=== PATIENT | male | born 1970 | race Caucasian/White ===

== ENCOUNTER 2018-12-11 16:15 | Emergency (ER) | payer MEDICAID ==
[2018-12-11] MEDS ORDERED: Multivitamin Inj 10 ML, Thiamine HCL 100 MG, Magnesium Sulfate 2 GM, Folic Acid 1 MG in... IV ONE (16:41)
--- NOTE | 2018-12-11 16:47 | ED Physician Chart ---
ED Chief Complaint/HPI - Patient Information Date Seen:: 12/11/18 Time Seen:: 16:35 Chief Complaint:: cheek pain History of Present Illness:: Patient was found sitting on the sidewalk. He states he fell 2 days ago hurting his right cheek. He also complained of diffuse myalgias. Accu-Chek in the field was 173. He denies drinking any alcohol today. Allergies:: Allergies Allergy/AdvReac Type Severity Reaction Status Date / Time No Known Allergies Allergy Verified 12/11/18 16:40 Historian:: Patient, EMS ED Review of Systems - Review of Systems General/Constitutional: No fever, No chills Skin: No skin lesions Head: No headache, Other (right cheek pain) Eyes: No loss of vision ENT: No earache Neck: No neck pain Cardio Vascular: No chest pain, No palpitations Pulmonary: No SOB GI: No nausea, No vomiting, No diarrhea G/U: No dysuria Musculoskeletal: No bone or joint pain Endocrine: No polyuria Psychiatric: No prior psych history, No depression, No anxiety Hematopoietic: No bruising Allergic/Immuno: No urticaria Neurological: No syncope, No focal symptoms ED Past Medical History - Past Medical History Past Medical History: No significant medical hx Family History: None Social History: Non Smoker Psychiatricy History: None Family Medical History - Family Member Mother History Unknown: Yes ED Physical Exam - Physical Examination General/Constitutional: Awake, Well-developed, well-nourished, Alert, No distress Other Gen/Cons comments:: disheveled Other Head comments:: tenderness right zygomatic arch without swelling Eyes: Lids, conjuctiva normal, PERRL Skin: Nl inspection ENMT: External ears, nose nl Other ENMT comments:: 3/4 periodontal disease Neck: No nuchal rigidity Respiratory: Nl effort/Exclusion, Clear to Auscultation, No Wheeze/Rhonchi/Rales Cardio Vascular: RRR, No murmur, gallop, rubs, NL S1 S2 GI: No tenderness/rebounding/guarding Extremities: Normal digits & nails Neuro/Psych: No focal deficits ED Labs/Radiology/EKG Results - Lab Results Results: Laboratory Results WBC 5.0 Th/cmm (4.8-10.8) 12/11/18 16:55 RBC 4.08 Mil/cmm (4.30-5.70) L 12/11/18 16:55 Hgb 11.7 gm/dL (12-16) L 12/11/18 16:55 Hct 34.8 % (41.0-60) L 12/11/18 16:55 MCV 85.3 fl (80-99) 12/11/18 16:55 MCH 28.7 pg (26.0-30.0) 12/11/18 16:55 MCHC Differential 33.7 pg (28.0-36.0) 12/11/18 16:55 RDW 17.0 % (11.5-20.0) 12/11/18 16:55 Plt Count 78 Th/cmm (150-400) L 12/11/18 16:55 MPV 7.2 fl 12/11/18 16:55 Neutrophils % 50.1 % (40.0-80.0) 12/11/18 16:55 Lymphocytes % 40.1 % (20.0-50.0) 12/11/18 16:55 Monocytes % 6.5 % (2.0-10.0) 12/11/18 16:55 Eosinophils % 2.0 % (0.0-5.0) 12/11/18 16:55 Basophils % 1.3 % (0.0-2.0) 12/11/18 16:55 Sodium 138 mEq/L (136-145) 12/11/18 16:55 Potassium 3.2 mEq/L (3.5-5.1) L 12/11/18 16:55 Chloride 99 mEq/L (98-107) 12/11/18 16:55 Carbon Dioxide 21.5 mEq/L (21.0-31.0) 12/11/18 16:55 Anion Gap 20.7 (7.0-16.0) H 12/11/18 16:55 BUN 9 mg/dL (7-25) 12/11/18 16:55 Creatinine 0.6 mg/dL (0.7-1.3) L 12/11/18 16:55 Est GFR ( Amer) > 60.0 ml/min (>90) 12/11/18 16:55 Est GFR (Non-Af Amer) > 60.0 ml/min 12/11/18 16:55 BUN/Creatinine Ratio 15.0 12/11/18 16:55 Glucose 107 mg/dL (70-105) H 12/11/18 16:55 Calcium 8.2 mg/dL (8.6-10.3) L 12/11/18 16:55 Magnesium 1.9 mg/dL (1.9-2.7) 12/11/18 16:55 Ethyl Alcohol 507 mg/dL (0-10) H 12/11/18 16:55 ED Assessment - Assessment General Assessment: Patient to stay in the emergency department until tomorrow morning because he blood alcohol level is so high (507) and patient be discharged when he ambulates normally. Patient's speech is not slurred, ED Septic Shock - . Is Septic Shock (SBP<90, OR Lactate>4 mmol\L) present?: No ED Reassessment (Disposition) - Reassessment Reassessment Condition:: Improved - Diagnosis Diagnosis:: Acute alcohol intoxication; probable chronic alcohol abuse; anemia; contusion right cheek - Patient Disposition Discharge/Transfer:: Home Condition at Disposition:: Stable, Improved
[2018-12-11 17:02] LABS: % BASOPHILS 1.3 % (0.0-2.0); % LYMPHOCYTES 40.1 % (20.0-50.0); % MONOCYTES 6.5 % (2.0-10.0); % NEUTROPHILS 50.1 % (40.0-80.0); BASOPHILE ABSOLUTE 0.1 Th/cumm (0-0.2); EOSINOPHILE ABSOLUTE 0.1 Th/cmm (0.1-0.4); HEMATOCRIT 34.8 % (41.0-60); HEMOGLOBIN 11.7 gm/dL (12-16); MEAN CELL VOLUME 85.3 fl (80-99); MEAN CORPUSCULAR HEMOGLOBIN 28.7 pg (26.0-30.0); MEAN CORPUSCULAR HGB CONC 33.7 pg (28.0-36.0); MEAN PLATELET VOLUME 7.2 fl; MONOCYTE ABSOLUTE 0.3 Th/cmm (0.3-1.0); NEUTROPHILE ABSOLUTE 2.5 Th/cmm (1.8-8.0); PLATELET COUNT 78 Th/cmm (150-400); RED BLOOD COUNT 4.08 Mil/cmm (4.30-5.70)
[2018-12-11 17:21] LABS: ANION GAP 20.7 (7.0-16.0); BUN - UREA NITROGEN 9 mg/dL (7-25); CALCIUM SERUM 8.2 mg/dL (8.6-10.3); CARBON DIOXIDE 21.5 mEq/L (21.0-31.0); CHLORIDE 99 mEq/L (98-107); CREATININE - SERUM 0.6 mg/dL (0.7-1.3); GFR AFRICAN-AMERICAN > 60.0 ml/min (>90); GFR NON AFRICAN-AMERICAN > 60.0 ml/min; GLUCOSE 107 mg/dL (70-105); MAGNESIUM 1.9 mg/dL (1.9-2.7); POTASSIUM SERUM 3.2 mEq/L (3.5-5.1); SODIUM SERUM 138 mEq/L (136-145)
[2018-12-11] MEDS ORDERED: Multivitamin Inj 10 mL Vial IV ONE (17:23)
[2018-12-11] MEDS ORDERED: Thiamine 100 mg/mL 2mL Vial ONE (17:24)
[2018-12-11] MEDS ORDERED: Magnesium Sulfate 1 gm/2 mL 2mL Vial IV ONE (17:29)
[2018-12-12] MEDS ORDERED: Potassium Chloride 20 mEq ER Tab PO ONE ×3 (00:29→04:32)
== END 2018-12-12 06:30 | disposition home or self-care (01) ==
LOC: ER 16:15
DX: S00.83XA Contusion of other part of head, initial encounter (principal); F10.129 Alcohol abuse with intoxication, unspecified; D64.9 Anemia, unspecified; Y90.8 Blood alcohol level of 240 mg/100 ml or more; W18.39XA Other fall on same level, initial encounter; Y93.89 Activity, other specified; Y92.89 Other specified places as the place of occurrence of the external cause; Y99.8 Other external cause status
CPT/HCPCS: 99283; 96365; 36415; 85025; 80320; 83735; 80048; J3411; J3475; J7030; X6226; X6598; Z7502

== ENCOUNTER 2018-12-27 19:54 | Emergency (ER) | payer MEDICAID ==
[2018-12-27 20:33] LABS: HEMATOCRIT 34.6 % (41.0-60); HEMOGLOBIN 11.9 gm/dL (12-16)
[2018-12-27 20:38] LABS: MEAN CELL VOLUME 85.3 fl (80-99); MEAN CORPUSCULAR HEMOGLOBIN 29.2 pg (26.0-30.0); MEAN CORPUSCULAR HGB CONC 34.3 pg (28.0-36.0); PLATELET COUNT 126 Th/cmm (150-400); RED BLOOD COUNT 4.06 Mil/cmm (4.30-5.70); RED CELL DISTRIBUTION WIDTH 21.2 % (11.5-20.0); WHITE BLOOD COUNT 4.7 Th/cmm (4.8-10.8)
[2018-12-27 20:44] LABS: ALKALINE PHOSPHATASE 224 U/L (34-104); ANION GAP 20.3 (7.0-16.0); BILIRUBIN,TOTAL 2.6 mg/dL (0.3-1.0); BUN - UREA NITROGEN 13 mg/dL (7-25); CALCIUM SERUM 8.6 mg/dL (8.6-10.3); CARBON DIOXIDE 22.8 mEq/L (21.0-31.0); CHLORIDE 100 mEq/L (98-107); CREATININE - SERUM 0.5 mg/dL (0.7-1.3); GFR AFRICAN-AMERICAN > 60.0 ml/min (>90); GFR NON AFRICAN-AMERICAN > 60.0 ml/min; GLUCOSE 110 mg/dL (70-105); POTASSIUM SERUM 3.1 mEq/L (3.5-5.1); SGOT 407 U/L (13-39); SGPT/ALT 82 U/L (7-52); SODIUM SERUM 140 mEq/L (136-145)
[2018-12-27 20:55] LABS: INR 1.06 (0.5-1.4)
[2018-12-27] MEDS ORDERED: Potassium Chloride Elixir 20 mEq /15 mL UDC PO ONE (21:02)
[2018-12-27] MEDS ORDERED: Sodium Chloride 0.45% 1,000 ML IV ONE ×2 (21:03→21:04)
[2018-12-27 21:15] LABS: BAND NEUTROPHILE 3 % (0-10); LYMPHOCYTE 40 % (20-50); MONOCYTE 2 % (2-10); NEUTROPHILS 46 % (40-80)
[2018-12-27 21:16] LABS: BASOPHIL 8 % (0-3); EOSINOPHIL 1 % (0-5)
[2018-12-27] MEDS ORDERED: Potassium Chloride Elixir 20 mEq /15 mL UDC ONE (21:50)
[2018-12-27 22:13] LABS: URINE SOURCE CLEAN C
[2018-12-27 22:16] LABS: URINE BILIRUBIN MODERATE (NEGATIVE); URINE BLOOD NEGATIVE (NEGATIVE); URINE GLUCOSE (UA) NEGATIVE (NEGATIVE); URINE KETONE 15 mg/dL (NEGATIVE); URINE LEUKOCYTE ESTERASE NEGATIVE (NEGATIVE); URINE NITRATE NEGATIVE (NEGATIVE); URINE PH 6.5 (4.6 - 8.0); URINE PROTEIN 100 mg/dL (NEGATIVE)
[2018-12-27 22:49] LABS: URINE CLARITY CLEAR (CLEAR); URINE COLOR YELLOW
[2018-12-27 23:09] LABS: URINE ICTOTEST POSITIVE (NEGATIVE)
[2018-12-27 23:10] LABS: URINE BACTERIA NONE SEEN /hpf (NONE SEEN); URINE EPITHELIAL CELLS RARE /lpf (FEW); URINE RBC NONE SEEN /hpf (0-5); URINE WBC NONE SEEN /hpf (0-5)
[2018-12-27 23:11] LABS: AMPHETAMINE URINE NEGATIVE (NEGATIVE); BARBITURATES URINE NEGATIVE (NEGATIVE); BENZODIAZEPINES QUAL URINE POSITIVE (NEGATIVE); CANNABINOID THC NEGATIVE (NEGATIVE); COCAINE METABOLITE QUAL URINE NEGATIVE (NEGATIVE); METHADONE URINE NEGATIVE (NEGATIVE); METHAMPHETAMINES QUAL URINE NEGATIVE (NEGATIVE); OPIATES (MORPHINE) QUAL. URINE NEGATIVE (NEGATIVE); PHENCYCLIDINE (PCP) URINE NEGATIVE (NEGATIVE); TRICYCLICS (TCA) QUAL. URINE NEGATIVE (NEGATIVE); URINE MICROSCOPIC INDICATED? YES
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
[2018-12-28] MEDS ORDERED: Multivitamin Inj 10 ML, Thiamine HCL 100 MG, Magnesium Sulfate 2 GM, Folic Acid 1 MG in... IV ONE (07:11)
[2018-12-28] MEDS ORDERED: Multivitamin Inj 10 mL Vial IV ONE (07:21)
[2018-12-28] MEDS ORDERED: Magnesium Sulfate 1 gm/2 mL 2mL Vial IV ONE (07:23)
[2018-12-28] MEDS ORDERED: Thiamine 100 mg/mL 2mL Vial ONE (07:23)
[2018-12-28 09:03] VITALS: BP 144/93
--- NOTE | 2018-12-29 08:14 | Diagnostic Imaging Report ---
CT scan of the brain without contrast History: Altered mental status Total DLP equals 841 CTDI equals 41.8 Axial sections were obtained from the base of the skull to the vertex. There is a normal ventricular system size. No focal parenchymal lesions are seen. No evidence of any mass effect or shift of midline structures. No extra-axial masses or abnormal fluid collections. Impression: Negative examination
== END 2018-12-29 05:28 | disposition home or self-care (01) ==
LOC: ER 19:54
DX: F10.129 Alcohol abuse with intoxication, unspecified (principal); F32.9 Major depressive disorder, single episode, unspecified; Z59.0 Homelessness; Y90.8 Blood alcohol level of 240 mg/100 ml or more
CPT/HCPCS: 36415-UA; 70450-TC; 80053-TC; 80307; 80320-TC; 81001-TC; 84443-TC; 84484-TC; 85007-TC; 85025-TC; 85610-TC; 85730-TC; 86592-TC; 96374; 96375; 96376; J2405; J3411; J3475; J7030; X6226; X6598; Z7610

== ENCOUNTER 2019-01-27 14:20 | Emergency (ER) | payer MEDICAID | END 2019-01-27 15:00 | disposition short-term general hospital (02) | LOC: ER 14:20 | DX: F10.129 Alcohol abuse with intoxication, unspecified (principal); R42 Dizziness and giddiness; R53.1 Weakness; Z53.21 Procedure and treatment not carried out due to patient leaving prior to being seen by health care provider ==

== ENCOUNTER 2019-01-27 16:06 | Inpatient (IN) | payer MEDICAID ==
[2019-01-27] MEDS ORDERED: Sodium Chloride 0.9% 1,000 ML IV ONE (16:19)
[2019-01-27 17:07] LABS: INR 1.16 (0.5-1.4)
--- NOTE | 2019-01-27 17:12 | ED Physician Chart ---
ED Chief Complaint/HPI - Patient Information Date Seen:: 01/27/19 Time Seen:: 16:20 Chief Complaint:: Weakness History of Present Illness:: onset x one day of weakness, ALOC, AMS, and dizziness/vertigo; Hx of recent ETOH consumption; no report of trauma, H/As, neck pain, C/P, SOB, Abd. Pain, A/N /V/D/C, fever, chills, bleeding, or urinary s/s Allergies:: Allergies Allergy/AdvReac Type Severity Reaction Status Date / Time No Known Allergies Allergy Verified 12/27/18 20:06 Vitals:: Vital Signs - 8 hr 01/27/19 16:27 BP 110/54 O2 Sat % 97 Historian:: Patient, EMS Review:: Nurse's Note Reviewed, Old Chart Reviewed, EMS run form Reviewed ED Review of Systems - Review of Systems General/Constitutional: No fever, No chills, No weight loss, No weakness, No diaphoresis, No edema, No loss of appetite Skin: No skin lesions, No rash, No bruising Head: No headache, No light-headedness Eyes: No loss of vision, No pain, No diplopia ENT: No earache, No nasal drainage, No sore throat, No tinnitus Neck: No neck pain, No swelling, No thyromegaly, No stiffness, No mass noted Cardio Vascular: No chest pain, No palpitations, No PND, No orthopnea, No edema Pulmonary: No SOB, No cough, No sputum, No wheezing GI: No nausea, No vomiting, No diarrhea, No pain, No melena, No hematochezia, No constipation, No hematemesis G/U: No dysuria, No frequency, No hematuria, No nacturia Musculoskeletal: No bone or joint pain, No back pain, No muscle pain Endocrine: No polyuria, No polydipsia Psychiatric: No prior psych history, No depression, No anxiety, No suicidal ideation, No homicidal ideation, No auditory hallucination, No visual hallucination Hematopoietic: No bruising, No lymphadenopathy Allergic/Immuno: No urticaria, No angioedema Neurological: No syncope, No focal symptoms, No weakness, No paresthesia, No headache, No seizure, No dizziness, No confusion, No vertigo ED Past Medical History - Past Medical History Obtainable: Yes Past Medical History: HTN Family History: HTN Social History: Smoker, Alcohol, No Drug Use, Single, Homeless Surgical History: None Psychiatricy History: None Medication: Reviewed Family Medical History - Family Member Mother History Unknown: Yes ED Physical Exam - Physical Examination General/Constitutional: Awake, Well-developed, well-nourished, Alert, No distress, GCS 15, Non-toxic appearing, Ambulatory Head: Atraumatic Eyes: Lids, conjuctiva normal, PERRL, EOMI Other Eyes comments:: + Scleral Icterus Skin: Nl inspection, No rash, No skin lesions, No ecchymosis, Well hydrated, No lymphadenopathy Other Skin comments:: + Jaundice ENMT: External ears, nose nl, TM canals nl, Nasal exam nl, Lips, teeth, gums nl , Oropharynx nl, Tonsils nl Neck: Nontender, Full ROM w/o pain, No JVD, No nuchal rigidity, No bruit, No mass, No stridor Respiratory: Nl effort/Exclusion, Clear to Auscultation, No Wheeze/Rhonchi/Rales Cardio Vascular: RRR, No murmur, gallop, rubs, NL S1 S2, Carotid/Femoral/Distal pulses equal bilaterally GI: No tenderness/rebounding/guarding, No organomegaly, No hernia, Normal BS's, Nondistended, No mass/bruits, No McBurney tenderness, Rectum exam nl : No CVA tenderness Extremities: No tenderness or effusion, Full ROM, normal strength in all extremities, No edema, Normal digits & nails Neuro/Psych: Alert/oriented, DTR's symmetric, Normal sensory exam, Normal motor strength, Judgement/insight normal, Mood normal, Normal gait, No focal deficits Misc: Normal back, No paraspinal tenderness ED Labs/Radiology/EKG Results - Lab Results Results: Laboratory Tests 01/27/19 16:39 PT 12.0 H INR 1.16 Comments:: Reviewed - Radiology Results Comments:: Pending - EKG Interpretations EKG Time:: 16:46 Rate & Rhythm: 93; NSR Comments:: non-specific st-t changes ED Septic Shock - . Is Septic Shock (SBP<90, OR Lactate>4 mmol\L) present?: No - <6hrs of presentation: Vital Signs: Vital Signs - 8 hr 01/27/19 16:27 BP 110/54 O2 Sat % 97 ED Reassessment (Disposition) - Reassessment Reassessment Condition:: Improved - Diagnosis Diagnosis:: AMS; ALOC; Weakness; Dizziness; Vertigo; Hypokalemia; Alcohol Intoxication; Elevated LFTs; Hypocalcemia; Hypoalbuminemia - Aftercare/Follow up Instructions Aftercare/Follow-Up Instructions:: Counseled pt regarding lab results/diagnosis & need follow up, Counseled pt & family regarding lab results/diagnosis & need follow up - Patient Disposition Discharge/Transfer:: Acute Care w/in this hosp Accepting Physician:: Dr. Mann to Dr. Weiner Time Called:: 0600 Time Responded:: 06:00 Admitted to:: Telemetry Spoke to:: Dr. Mann to Dr. Weiner Admitting Medical Physician:: Dr. Weiner Condition at Disposition:: Stable, Improved
[2019-01-27 17:18] LABS: HEMATOCRIT 32.3 % (41.0-60); HEMOGLOBIN 11.2 gm/dL (12-16); MEAN CELL VOLUME 91.3 fl (80-99); MEAN CORPUSCULAR HEMOGLOBIN 31.5 pg (26.0-30.0); MEAN CORPUSCULAR HGB CONC 34.5 pg (28.0-36.0); PLATELET COUNT 44 Th/cmm (150-400); RED BLOOD COUNT 3.54 Mil/cmm (4.30-5.70); RED CELL DISTRIBUTION WIDTH 19.7 % (11.5-20.0); WHITE BLOOD COUNT 4.4 Th/cmm (4.8-10.8)
[2019-01-27 18:07] LABS: ALB/GLOB RATIO 0.9 (1.0-1.8); ALBUMIN 3.6 gm/dL (4.2-5.5); ALKALINE PHOSPHATASE 171 U/L (34-104); AMYLASE SERUM 66 U/L (29-103); ANION GAP 19.7 (7.0-16.0); BILIRUBIN,TOTAL 4.8 mg/dL (0.3-1.0); BUN - UREA NITROGEN 7 mg/dL (7-25); CALCIUM SERUM 8.3 mg/dL (8.6-10.3); CARBON DIOXIDE 23.4 mEq/L (21.0-31.0); CHLORIDE 99 mEq/L (98-107); CHOLESTEROL 191 mg/dL (<200); CREATININE - SERUM 0.5 mg/dL (0.7-1.3); CREATININE KINASE 135 U/L (30-223); GFR AFRICAN-AMERICAN > 60.0 ml/min (>90); GFR NON AFRICAN-AMERICAN > 60.0 ml/min; GLUCOSE 148 mg/dL (70-105); HDL -HIGH DENSITY LIPOPROTEIN 19 mg/dL (23-92); LIPASE 85 U/L (11-82); POTASSIUM SERUM 3.1 mEq/L (3.5-5.1); SGOT 252 U/L (13-39); SGPT/ALT 36 U/L (7-52); SODIUM SERUM 139 mEq/L (136-145); TOTAL PROTEIN,SERUM 7.6 gm/dL (6.0-8.3); TRIGLYCERIDES 224 mg/dL (<150)
[2019-01-27 18:10] LABS: ACETAMINOPHEN < 10.0 ug/mL (10.0-30.0)
[2019-01-27] MEDS ORDERED: Potassium Chloride 20 mEq ER Tab PO ONE ×2 (18:18→18:37)
[2019-01-27] MEDS ORDERED: Multivitamin Inj 10 ML, Thiamine HCL 100 MG, Magnesium Sulfate 2 GM, Folic Acid 1 MG in... IV ONE (18:19)
[2019-01-27] MEDS ORDERED: Multivitamin Inj 10 mL Vial IV ONE (18:35)
[2019-01-27] MEDS ORDERED: Thiamine 100 mg/mL 2mL Vial ONE (18:35)
[2019-01-27] MEDS ORDERED: Magnesium Sulfate 1 gm/2 mL 2mL Vial IV ONE (18:36)
[2019-01-27 18:40] LABS: BAND NEUTROPHILE 0 % (0-10); BASOPHIL 0 % (0-3); EOSINOPHIL 1 % (0-5); LYMPHOCYTE 41 % (20-50); MONOCYTE 8 % (2-10); NEUTROPHILS 50 % (40-80)
[2019-01-27 18:41] LABS: ANISOCYTOSIS 1+; PLATELET ESTIMATE DECREASED PLATELETS (NORMAL)
[2019-01-27 19:19] LABS: URINE SOURCE CLEAN C
[2019-01-27 19:30] LABS: URINE BILIRUBIN LARGE (NEGATIVE); URINE BLOOD NEGATIVE (NEGATIVE); URINE GLUCOSE (UA) NEGATIVE (NEGATIVE); URINE KETONE TRACE mg/dL (NEGATIVE); URINE LEUKOCYTE ESTERASE NEGATIVE (NEGATIVE); URINE NITRATE NEGATIVE (NEGATIVE); URINE PH 7.5 (4.6 - 8.0); URINE PROTEIN 30 mg/dL (NEGATIVE)
[2019-01-27 19:52] LABS: URINE CLARITY CLOUDY (CLEAR); URINE MICROSCOPIC INDICATED? YES
[2019-01-27 19:53] LABS: URINE COLOR ORANGE
[2019-01-27 20:11] LABS: URINE ICTOTEST POSITIVE (NEGATIVE)
[2019-01-27 20:12] LABS: URINE BACTERIA FEW /hpf (NONE SEEN); URINE EPITHELIAL CELLS NONE SEEN /lpf (FEW); URINE RBC 0-2 /hpf (0-5); URINE WBC 0-2 /hpf (0-5)
[2019-01-27 20:15] LABS: BENZODIAZEPINES QUAL URINE POSITIVE (NEGATIVE); CANNABINOID THC POSITIVE (NEGATIVE)
[2019-01-27 20:16] LABS: AMPHETAMINE URINE NEGATIVE (NEGATIVE); BARBITURATES URINE NEGATIVE (NEGATIVE); COCAINE METABOLITE QUAL URINE NEGATIVE (NEGATIVE); METHADONE URINE NEGATIVE (NEGATIVE); METHAMPHETAMINES QUAL URINE NEGATIVE (NEGATIVE); OPIATES (MORPHINE) QUAL. URINE NEGATIVE (NEGATIVE); PHENCYCLIDINE (PCP) URINE NEGATIVE (NEGATIVE); TRICYCLICS (TCA) QUAL. URINE NEGATIVE (NEGATIVE)
--- NOTE | 2019-01-28 07:56 | Diagnostic Imaging Report ---
Head CT without intravenous contrast Indication: Altered level of consciousness, trauma Comparison: Head CT 12/28/2018 Technique: Axial images were obtained from the vertex to the skull base without IV contrast. Coronal reconstructions were made. Total DLP: 656, CTDI35 FINDINGS: Images of the brain obtained without contrast demonstrate no evidence of acute hemorrhage. Faint bilateral basal ganglia calcifications are noted. Unchanged CSF density of the left temporal region is again noted measuring 3.3 x 1.2 cm. The ventricles and basal cisterns are patent. No mass effect or midline shift. No evidence of a skull fracture or focal soft tissue swelling. The paranasal sinuses demonstrate mild mucosal thickening. IMPRESSION: No acute intracranial abnormality. Unchanged 3.3 x 1.2 cm CSF density of the left temporal region which may represent an arachnoid cyst.
--- NOTE | 2019-01-28 08:02 | Diagnostic Imaging Report ---
CT cervical spine without IV contrast HISTORY: Altered level of consciousness, trauma COMPARISON: None Technique: Axial images were obtained from the skull base to the upper thoracic spine without IV contrast. Multiplanar reconstructions were made. Total DLP: 610, CTDI29 FINDINGS: Images of the cervical spine obtained without contrast demonstrate no evidence of acute fracture or subluxation. There is reversal of the cervical lordosis. Mild degenerative changes seen greatest at C5/C6 with mild disc space loss of height at this level. Mild marginal osteophytic spurring is noted. No prevertebral soft tissue swelling. Lung apices are clear. IMPRESSION: No evidence of acute fracture or subluxation Reversal of the cervical lordosis which may be due to positioning versus muscle spasm. Mild degenerative changes.
[2019-01-28] MEDS: D5-0.9%NS 1,000 ML IV SCH (16:19)
[2019-01-28 18:12] VITALS: BP 144/76
[2019-01-28] MEDS ORDERED: Maalox 30 mL Cup PO PRN (20:53)
--- NOTE | 2019-01-28 21:43 | History & Physical ---
ADMIT DATE: 01/28/2019 CHIEF COMPLAINT: Weakness, alcohol intoxication. HISTORY OF PRESENT ILLNESS: This is a 48-year-old male with history of alcohol abuse, brought in complaining of weakness. The patient was brought in the ER. CT of the head was negative as well as cervical spine. The patient noted to have alcohol level in excess of 400. The patient admitted for further management. PAST MEDICAL HISTORY: As mentioned in the history of present illness. PAST SURGICAL HISTORY: Denies surgeries in the past. ALLERGIES: No known drug allergies. MEDICATIONS: None from home. FAMILY HISTORY: Noncontributory. SOCIAL HISTORY: Avid smoker and drinker. Would not comment as far as his IV drug use. REVIEW OF SYSTEMS: This is limited secondary to the patient's current mental state. GENERAL: Complains not feeling well. HEENT: No blurred vision or pain. LUNGS: No diagnosis of COPD or asthma. HEART: Denies hypertension or coronary artery disease. ABDOMEN: Unsure whether any cirrhosis. GENITOURINARY: The patient denies any increased frequency or dysuria. NEUROLOGIC: Denies alcohol-related seizure. PHYSICAL EXAMINATION: VITAL SIGNS: Blood pressure 138/74, respirations 18, pulse 91, temperature 98.2. GENERAL: Elderly male, chronically ill. NECK: Supple. No mass. LUNGS: Equal breath sounds, few rhonchi. HEART: Regular rate and rhythm without appreciable murmur. ABDOMEN: Soft, globular. EXTREMITIES: Positive excoriation, atrophy, disheveled. NEUROLOGIC: Limited in all 4 extremities. Able to stand up. Gait not seen, however. LABORATORY DATA: WBC 4.4, hemoglobin 11, platelets 44. Sodium 139, potassium 3.1, BUN 7, creatinine 0.9, blood sugar 148, AST and ALT of 252 and 36. Positive bilirubin in the urine, alcohol is 483. ASSESSMENT AND PLAN: Alcohol intoxication, pancytopenia secondary to chronic alcoholism, hypokalemia, hyperglycemia, low albumin. Continue the patient on aggressive IV hydration, ____, also putting on Librium. We will refer the patient to Psychiatry. We will monitor the patient closely. [facility]# [id number]
[2019-01-29] MEDS: D5-0.9%NS 1,000 ML IV SCH ×3 (02:25→15:59)
--- NOTE | 2019-01-29 12:12 | Internal Medicine Prog Note ---
Internal Medicine Subjective - Subjective Patient seen and examined:: with staff, chart reviewed Patient is:: awake, verbal, interactive, in bed Per staff patient has:: no adverse event, no episodes of fall, noncompliant, tolerating meds Internal Medicine Objective - Results Result Diagrams: 01/27/19 16:30 01/27/19 16:30 Recent Labs: Laboratory Last Values WBC 4.4 Th/cmm (4.8-10.8) L 01/27/19 16:30 RBC 3.54 Mil/cmm (4.30-5.70) L 01/27/19 16:30 Hgb 11.2 gm/dL (12-16) L 01/27/19 16:30 Hct 32.3 % (41.0-60) L 01/27/19 16:30 MCV 91.3 fl (80-99) 01/27/19 16:30 MCH 31.5 pg (26.0-30.0) H 01/27/19 16:30 MCHC Differential 34.5 pg (28.0-36.0) 01/27/19 16:30 RDW 19.7 % (11.5-20.0) 01/27/19 16:30 Plt Count 44 Th/cmm (150-400) L 01/27/19 16:30 MPV 7.8 fl 01/27/19 16:30 Add Manual Diff YES 01/27/19 16:30 Band Neutrophils % 0 % (0-10) 01/27/19 16:30 Neutrophils (Manual) 50 % (40-80) 01/27/19 16:30 Lymphocytes 41 % (20-50) 01/27/19 16:30 Monocytes 8 % (2-10) 01/27/19 16:30 Eosinophils 1 % (0-5) 01/27/19 16:30 Basophils 0 % (0-3) 01/27/19 16:30 Platelet Estimate DECREASED PLATELETS (NORMAL) 01/27/19 16:30 Anisocytosis 1+ 01/27/19 16:30 PT 12.0 SECONDS (9.5-11.5) H 01/27/19 16:39 INR 1.16 (0.5-1.4) 01/27/19 16:39 Sodium 139 mEq/L (136-145) 01/27/19 16:30 Potassium 3.1 mEq/L (3.5-5.1) L 01/27/19 16:30 Chloride 99 mEq/L (98-107) 01/27/19 16:30 Carbon Dioxide 23.4 mEq/L (21.0-31.0) 01/27/19 16:30 Anion Gap 19.7 (7.0-16.0) H 01/27/19 16:30 BUN 7 mg/dL (7-25) 01/27/19 16:30 Creatinine 0.5 mg/dL (0.7-1.3) L 01/27/19 16:30 Est GFR ( Amer) > 60.0 ml/min (>90) 01/27/19 16:30 Est GFR (Non-Af Amer) > 60.0 ml/min 01/27/19 16:30 BUN/Creatinine Ratio 14.0 01/27/19 16:30 Glucose 148 mg/dL (70-105) H 01/27/19 16:30 POC Glucose 100 MG/DL (70 - 105) 01/28/19 16:06 Calcium 8.3 mg/dL (8.6-10.3) L 01/27/19 16:30 Total Bilirubin 4.8 mg/dL (0.3-1.0) H 01/27/19 16:30 AST 252 U/L (13-39) H 01/27/19 16:30 ALT 36 U/L (7-52) 01/27/19 16:30 Alkaline Phosphatase 171 U/L (34-104) H 01/27/19 16:30 Creatine Kinase 135 U/L (30-223) 01/27/19 16:30 Troponin I 0.01 ng/mL (0.01-0.05) 01/27/19 16:30 B-Natriuretic Peptide 77.1 pg/mL (5.0-100.0) 01/27/19 16:30 Total Protein 7.6 gm/dL (6.0-8.3) 01/27/19 16:30 Albumin 3.6 gm/dL (4.2-5.5) L 01/27/19 16:30 Globulin 4.0 gm/dL 01/27/19 16:30 Albumin/Globulin Ratio 0.9 (1.0-1.8) L 01/27/19 16:30 Triglycerides 224 mg/dL (<150) H 01/27/19 16:30 Cholesterol 191 mg/dL (<200) 01/27/19 16:30 LDL Cholesterol Direct 139 mg/dL (75-193) 01/27/19 16:30 HDL Cholesterol 19 mg/dL (23-92) L 01/27/19 16:30 Amylase 66 U/L (29-103) 01/27/19 16:30 Lipase 85 U/L (11-82) H 01/27/19 16:30 Urine Source CLEAN C 01/27/19 18:00 Urine Color ORANGE 01/27/19 18:00 Urine Clarity CLOUDY (CLEAR) 01/27/19 18:00 Urine pH 7.5 (4.6 - 8.0) 01/27/19 18:00 Ur Specific [place] 1.020 (1.005-1.030) 01/27/19 18:00 Urine Protein 30 mg/dL (NEGATIVE) H 01/27/19 18:00 Urine Glucose (UA) NEGATIVE mg/dL (NEGATIVE) 01/27/19 18:00 Urine Ketones TRACE mg/dL (NEGATIVE) 01/27/19 18:00 Urine Blood NEGATIVE (NEGATIVE) 01/27/19 18:00 Urine Nitrate NEGATIVE (NEGATIVE) 01/27/19 18:00 Urine Bilirubin LARGE (NEGATIVE) H 01/27/19 18:00 Urine Ictotest POSITIVE (NEGATIVE) H 01/27/19 18:00 Urine Urobilinogen 4.0 E.U./dL (0.2 - 1.0) H 01/27/19 18:00 Ur Leukocyte Esterase NEGATIVE (NEGATIVE) 01/27/19 18:00 Urine RBC 0-2 /hpf (0-5) H 01/27/19 18:00 Urine WBC 0-2 /hpf (0-5) 01/27/19 18:00 Ur Epithelial Cells NONE SEEN /lpf (FEW) 01/27/19 18:00 Urine Bacteria FEW /hpf (NONE SEEN) 01/27/19 18:00 Salicylates < 25.0 mg/L (30.0-100.0) L 01/27/19 16:30 Urine Opiates Screen NEGATIVE (NEGATIVE) 01/27/19 18:00 Urine Methadone Screen NEGATIVE (NEGATIVE) 01/27/19 18:00 Acetaminophen < 10.0 ug/mL (10.0-30.0) L 01/27/19 16:30 Ur Barbiturates Screen NEGATIVE (NEGATIVE) 01/27/19 18:00 Ur Tricyclics Screen NEGATIVE (NEGATIVE) 01/27/19 18:00 Ur Phencyclidine Scrn NEGATIVE (NEGATIVE) 01/27/19 18:00 Amphetamines Screen NEGATIVE (NEGATIVE) 01/27/19 18:00 U Methamphetamines Scrn NEGATIVE (NEGATIVE) 01/27/19 18:00 U Benzodiazepines Scrn POSITIVE (NEGATIVE) H 01/27/19 18:00 U Cocaine Metab Screen NEGATIVE (NEGATIVE) 01/27/19 18:00 U Cannabinoids Screen POSITIVE (NEGATIVE) H 01/27/19 18:00 Ethyl Alcohol 112 mg/dL (0-10) H 01/28/19 06:45 - Physical Exam Vitals and I&O: Vital Signs Temp 99.2 F 01/29/19 08:00 Pulse 90 01/29/19 08:00 Resp 18 01/29/19 08:00 BP 141/90 01/29/19 08:00 Pulse Ox 97 01/29/19 08:00 Intake & Output 01/28/19 01/29/19 01/29/19 18:59 06:59 18:59 Intake Total 320 1000 731.25 Output Total 300 Balance 320 700 731.25 Weight (lbs) 74.389 kg 74.389 kg Intake: Intake, IV Amount 1000 731.25 D5-0.9%Ns 1,000 ml @ 125 1000 731.25 mls/hr IV .Q8H [facility] Rx#: [id number] Oral 320 Output: Urine 300 Other: # Voids 1 # Bowel Movements 1 Stool Characteristics Formed Brown Weight Source Bedscale Estimated Active Medications: Current Medications Acetaminophen (Tylenol) 650 mg PO Q4H PRN PRN Reason: Pain Or Fever above 101 Stop: 03/29/19 20:52 Al Hydrox/Mg Hydrox/Simethicone (Maalox) 30 ml PO Q6H PRN PRN Reason: Dyspepsia Stop: 03/29/19 20:52 Chlordiazepoxide (Librium) 25 mg PO TID [facility]; Protocol Stop: 03/29/19 20:59 Last Admin: 01/29/19 08:31 Dose: 25 mg Dextrose/Sodium Chloride (D5-0.9%Ns) 1,000 mls @ 125 mls/hr IV .Q8H [facility] Stop: 03/29/19 15:15 Last Admin: 01/29/19 08:16 Dose: 125 mls/hr Ondansetron HCl (Zofran) 4 mg IV Q8H PRN PRN Reason: Nausea / Vomiting Stop: 03/29/19 20:52 General: alert HEENT: NC/AT, PERRLA Neck: Supple Lungs: congested Cardiovascular: RRR, Normal S1, Normal S2, without murmur Abdomen: soft, non-tender, globular, non-distended, positive bowel sound Extremities: excoriation, contracture Neurological: alert Internal Medicine Assmt/Plan - Assessment Assessment: ASSESSMENT AND PLAN: Alcohol intoxication, pancytopenia secondary to chronic alcoholism, hypokalemia, hyperglycemia, low albumin. - Plan Plan: PLAN: Continue the patient on aggressive IV hydration, ___banana bag_, also putting on Librium. We will refer the patient to Psychiatry. We will monitor the patient closely placement pending if pt wishes
--- NOTE | 2019-01-29 22:39 | Consultation ---
DATE OF CONSULTATION: 01/29/2019 IDENTIFYING INFORMATION: The patient is a 48-year-old male, is a constant dialysis patient who was admitted as he is homeless. Also, he is on alcohol detox protocol. HISTORY OF PRESENT ILLNESS: The patient was a poor historian. He said that they brought in by ambulance because he was on the streets. He admits to drinking alcohol. He was unable to specify how much. The patient denies that he is depressed. He denies any intent to harm himself or anyone. He denies any auditory or visual hallucinations or paranoia. He reports that he sleeps well, eats well; however, he did not seem to be a reliable historian as when asked about the date today, he believes this is 2006. PAST PSYCHIATRIC HISTORY: The patient denies prior psychiatric treatment and he denies prior suicide attempt. Denies prior treatment by a psychiatrist. MEDICAL HISTORY: As per medical doctor. The patient is on detox protocol for the alcohol and Librium. FAMILY HISTORY: The patient reported that he is and he has 3 children, but they are with their mom. He reports he has some schooling, but did not finish high school. 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 He denies any family psychotic disorder. He is homeless. Denies having any legal problem. MENTAL STATUS EXAMINATION: The patient is appropriately dressed, appropriately groomed, looked somewhat disheveled. He was alert. He believes this is Saturday, when the reality is . He believes this year is 2006, on reality is 2018. He knew he was in some sort of hospital. He is not exactly sure why he is here. He denies any intent to harm himself or anyone. Denies any auditory hallucinations or paranoia. Denies any intent to harm anyone. He seems to have somewhat of below average intelligence. His long-term memory is good. He can remember his age. Short-term memory is poor. He is not sure why he is here. His immediate memory is poor, cannot concentrate enough and repeat things after me. His insight about his illness is poor, does not realize what his problems are. Judgment is poor. Being homeless, using alcohol. IMPRESSION: Chronic alcohol dependence, cognitive disorder, not otherwise specified. MEDICAL DIAGNOSIS: As per medical doctor. PLAN: I recommend continue with the detoxification. The patient needs a placement. The patient needs to follow up with his psychiatrist upon discharge to further investigate what is going on with him. Thank you very much for allowing me to participate in the care of this most interesting lady. JOB# [id number]
[2019-01-30] MEDS: D5-0.9%NS 1,000 ML IV SCH (01:14)
--- NOTE | 2019-01-30 15:07 | Discharge Summary ---
DATE OF DISCHARGE: 01/30/2019 CHIEF COMPLAINT: Generalized weakness and alcohol intoxication. FINAL DIAGNOSES: 1. The patient left AMA. 2. Alcohol intoxication. 3. Pancytopenia secondary to chronic alcoholism. 4. Electrolyte abnormalities, low albumin and noncompliance. HISTORY: This is a 48-year-old male with unknown alcohol abuse history. He had been in the ER, many times, admitted through the ER with alcohol level of 400. The patient was given a banana bag, unable to be discharged and admitted secondary to generalized weakness. PHYSICAL EXAMINATION: VITAL SIGNS: Blood pressure 131/81, respirations 18, pulse 97, temperature 91. GENERAL: The patient left against medical advice. HOSPITAL COURSE: The patient was admitted to medical floor, given a banana bag, IV hydration and Librium. The patient was also referred to physical therapy. Social service has been see the patient, but we have [facility] placement. The patient left against medical advice. CONDITION ON DISCHARGE: The patient left against medical advice. [facility]# [id number]
== END 2019-01-30 12:26 | disposition left against medical advice (07) | DRG 279 ==
LOC: ER 16:06 → MSI 01-28 15:13
PROVIDERS: ADMIT Internal Medicine; ATTEND Internal Medicine
DX: K72.90 Hepatic failure, unspecified without coma (principal); G93.41 Metabolic encephalopathy; D61.818 Other pancytopenia; F10.229 Alcohol dependence with intoxication, unspecified; E83.51 Hypocalcemia; E88.09 Other disorders of plasma-protein metabolism, not elsewhere classified; Y90.8 Blood alcohol level of 240 mg/100 ml or more; E87.6 Hypokalemia; R73.9 Hyperglycemia, unspecified; I10 Essential (primary) hypertension; F17.210 Nicotine dependence, cigarettes, uncomplicated; R42 Dizziness and giddiness; F09 Unspecified mental disorder due to known physiological condition; Z53.21 Procedure and treatment not carried out due to patient leaving prior to being seen by health care provider; Z59.0 Homelessness
CPT/HCPCS: 36415-UA; 70450-TC; 72125-TC; 80053-TC; 80061-TC; 80307; 80320-TC; 80329-TC; 81001-TC; 82150-TC; 82550-TC; 82948-90; 83690-TC; 83880-TC; 84484-TC; 85007-TC; 85025-TC; 85610-TC; 93005; 94760; J2405; J3411; J3475; J7030; J7042; Q0162; X6226; X6598; Z7610